=== PATIENT | female | born 1935 | race African-American/Black ===

== ENCOUNTER 2018-10-29 03:16 | Emergency (ER) | payer MEDICARE ==
[2018-10-29 03:42] LABS: Absolute Lymphocytes (CBC) 0.4 K/uL (0.7-4.9); Absolute Monocytes 0.3 K/uL (0.1-1.3); Absolute Neutrophil 3.9 K/uL (1.8-8.0); Basophils % 0.3 % (0-1.3); Eosinophils % 0.2 % (0-4.4); Hematocrit 35.4 % (36.0-45.0); Lymphocytes % 8.9 % (15.3-44.8); MPV 9.5 fL (7.6-11.3); Monocytes % 5.7 % (3.3-12.3)
[2018-10-29] MEDS ORDERED: DIPHENOX/ATROP SULF 1 TAB PO ONE (03:51)
[2018-10-29 04:05] LABS: ALT/SGPT 18 U/L (12-78); AST/SGOT 28 U/L (15-37); Albumin 2.9 g/dL (3.4-5.0); Alkaline Phosphatase 59 U/L (45-117); BUN Blood Urea Nitrogen 10 mg/dL (7-18); Bicarbonate 23 mmol/L (21-32); Bilirubin Direct 0.1 mg/dL (0-0.2); Bilirubin Total 0.6 mg/dL (0.2-1.0); Glucose Level 136 mg/dL (74-106); Lipase 49 U/L (73-393); Potassium 4.5 mmol/L (3.5-5.1); Protein, Total 6.3 g/dL (6.4-8.2); Sodium Level 140 mmol/L (136-145)
--- NOTE | 2018-10-29 04:50 | ER ---
Nurse's Notes [facility] Name: Lucinda Rojas Age: 83 yrs Sex: Female : 1935 Arrival Date: 10/29/2018 Time: 03:18 Bed 4 Private MD: Trevor Michele Diagnosis: Gastroenteritis Presentation: 10/29 03:25 Presenting complaint: EMS states: pt c/o N/V X3 hours SIGN WIRER. pt given 4mg zofran IV SIGN WIRER. ak1 Transition of care: patient was not received from another setting of care. Onset of symptoms was October 29, 2018. Risk Assessment: Do you want to hurt yourself or someone else? Patient reports no desire to harm self or others. Initial Sepsis Screen: Does the patient meet any 2 criteria? No. Patient's initial sepsis screen is negative. Does the patient have a suspected source of infection? No. Patient's initial sepsis screen is negative. Care prior to arrival: Medication(s) given: zofran 4 mg, IV initiated. 20 GA, in the right forearm. 03:25 Method Of Arrival: EMS: [facility] ak1 03:25 Acuity: KRISTIN 3 ak1 Triage Assessment: 03:27 General: Appears in no apparent distress. slender, Behavior is calm, cooperative. Pain: ak1 Denies pain. EENT: No signs and/or symptoms were reported regarding the EENT system. Neuro: No deficits noted. Cardiovascular: No deficits noted. Respiratory: No deficits noted. GI: Abdomen is flat, Abd is soft and non tender X 4 quads. Reports nausea, vomiting, since midnight Patient currently denies abdominal pain, diarrhea. : No signs and/or symptoms were reported regarding the genitourinary system. Derm: No signs and/or symptoms reported regarding the dermatologic system. Musculoskeletal: No signs and/or symptoms reported regarding the musculoskeletal system. 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 - Social history:: Smoking status: Patient/guardian denies using tobacco. - Ebola Screening: : No symptoms or risks identified at this time. Screenin:28 Abuse screen: Denies threats or abuse. Denies injuries from another. Nutritional ak1 screening: No deficits noted. Tuberculosis screening: No symptoms or risk factors identified. Fall Risk None identified. Assessment: 03:29 Reassessment: Patient appears in no apparent distress at this time. No changes from ak1 previously documented assessment. Patient is alert, oriented x 3, equal unlabored respirations, skin warm/dry/pink. see triage assessment. 04:38 Reassessment: Patient appears in no apparent distress at this time. pt c/o leg cramps. ak1 Vital Signs: 03:24 BP 134 / 86; Pulse 90; Resp 18; Temp 98.2(O); Pulse Ox 97% on R/A; Weight 63.5 kg (R); ak1 Height 5 ft. 4 in. (162.56 cm) (R); Pain 0/10; 04:38 BP 118 / 63; Pulse 80; Resp 16; Pulse Ox 99% on R/A; Pain 0/10; ak1 03:24 Body Mass Index 24.03 (63.50 kg, 162.56 cm) ak1 ED Course: 03:18 Patient arrived in ED. am2 03:19 Trevor Michele MD is Private Physician. am2 03:24 Kelsi Soto, RN is Primary Nurse. ak1 03:26 Triage completed. ak1 03:27 Arm band placed on Patient placed in an exam room, on a stretcher, on pulse oximetry, ak1 Patient notified of wait time. 03:28 Patient has correct armband on for positive identification. Placed in gown. Bed in low ak1 position. Call light in reach. Side rails up X2. Adult w/ patient. Pulse ox on. NIBP on. Warm blanket given. 03:28 Maintain EMS IV. Dressing intact. Good blood return noted. Site clean \T\ dry. Gauge \T\ ak 1 site: 20g right forearm.. 03:31 Ralf Saucedo MD is Attending Physician. pkl 04:49 Trevor Michele MD is Referral Physician. pkl 04:52 No provider procedures requiring assistance completed. ak1 05:08 IV discontinued, intact, bleeding controlled, IV infiltrated, swelling noted, no ak1 redness. pt denies pain. Administered Medications: 03:47 Drug: NS 0.9% 1000 ml Route: IV; Rate: 1000 ml; Site: right forearm; ak1 04:53 Follow up: IV Status: Completed infusion; IV Intake: 1000ml ak1 03:47 Drug: LoMOTIL 2 tabs Route: PO; ak1 04:37 Follow up: Response: No adverse reaction ak1 05:07 Drug: Tylenol 1000 mg Route: PO; ak1 05:08 Follow up: Response: No adverse reaction; Medication administered at discharge. ak1 Intake: 04:53 IV: 1000ml; Total: 1000ml. ak1 Outcome: 04:50 Discharge ordered by . pksharon 05:08 Discharged to home via wheelchair, with family. ak1 05:08 Condition: good 05:08 Discharge instructions given to patient, family, Instructed on discharge instructions, follow up and referral plans. no drinking with medication, no driving heavy equipment, medication usage, Demonstrated understanding of instructions, follow-up care, medications, Prescriptions given X 1. 05:09 Patient left the ED. ak1 Signatures: Ralf Saucedo MD MD pkl Krenek, Amber RN RN ak1 Yohana Gramajo
--- NOTE | 2018-10-29 04:51 | EDPHYS ---
Physician Documentation [facility] Name: Lucinda Rojas Age: 83 yrs Sex: Female : 1935 Arrival Date: 10/29/2018 Time: 03:18 Bed 4 Private MD: Trevor Michele ED Physician Ralf Saucedo HPI: 10/29 04:43 This 83 yrs old Black Female presents to ER via EMS with complaints of Nausea/Vomiting. pkl 04:43 The patient presents to the emergency department with nausea, vomiting, diarrhea. pkl Onset: The symptoms/episode began/occurred 3 hour(s) ago. 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 - Social history:: Smoking status: Patient/guardian denies using tobacco. - Ebola Screening: : No symptoms or risks identified at this time. ROS: 04:43 Eyes: Negative for injury, pain, redness, and discharge, ENT: Negative for injury, pkl pain, and discharge, Neck: Negative for injury, pain, and swelling, Cardiovascular: Negative for chest pain, palpitations, and edema, Respiratory: Negative for shortness of breath, cough, wheezing, and pleuritic chest pain. 04:43 Abdomen/GI: Positive for nausea, vomiting, and diarrhea. 04:43 Back: Negative for acute changes. 04:43 : Negative for urinary symptoms. 04:43 MS/extremity: Negative for acute changes. 04:43 Skin: Negative for rash. 04:43 Neuro: Negative for altered mental status. Exam: 04:43 Head/Face: Normocephalic, atraumatic. Eyes: Pupils equal round and reactive to light, pkl extra-ocular motions intact. Lids and lashes normal. Conjunctiva and sclera are non-icteric and not injected. Cornea within normal limits. Periorbital areas with no swelling, redness, or edema. ENT: Nares patent. No nasal discharge, no septal abnormalities noted. Tympanic membranes are normal and external auditory canals are clear. Oropharynx with no redness, swelling, or masses, exudates, or evidence of obstruction, uvula midline. Mucous membranes moist. Neck: Trachea midline, no thyromegaly or masses palpated, and no cervical lymphadenopathy. Supple, full range of motion without nuchal rigidity, or vertebral point tenderness. No Meningismus. Chest/axilla: Normal chest wall appearance and motion. Nontender with no deformity. No lesions are appreciated. Cardiovascular: Regular rate and rhythm with a normal S1 and S2. No gallops, murmurs, or rubs. Normal PMI, no JVD. No pulse deficits. Respiratory: Lungs have equal breath sounds bilaterally, clear to auscultation and percussion. No rales, rhonchi or wheezes noted. No increased work of breathing, no retractions or nasal flaring. 04:43 Abdomen/GI: Bowel sounds: active, Palpation: abdomen is soft and non-tender, in all quadrants. 04:43 Back: Exam negative for acute changes. 04:43 : Exam negative for acute changes. 04:43 Musculoskeletal/extremity: Exam is negative for acute changes. 04:43 Skin: Exam negative for rash. 04:43 Neuro: Orientation: is normal, Mentation: is normal, Cranial nerves: grossly normal, Motor: is normal. Vital Signs: 03:24 BP 134 / 86; Pulse 90; Resp 18; Temp 98.2(O); Pulse Ox 97% on R/A; Weight 63.5 kg (R); ak1 Height 5 ft. 4 in. (162.56 cm) (R); Pain 0/10; 04:38 BP 118 / 63; Pulse 80; Resp 16; Pulse Ox 99% on R/A; Pain 0/10; ak1 03:24 Body Mass Index 24.03 (63.50 kg, 162.56 cm) ak1 MDM: 03:31 Patient medically screened. pkl 04:49 Data reviewed: vital signs, nurses notes, lab test result(s). pkl 04:51 ED course: Patient feeling better. No vomiting or diarrhea noted in ER. Said she has pkl some cramps in right leg.. 10/29 03:30 Order name: Basic Metabolic Panel; Complete Time: 04:42 ak1 10/29 03:30 Order name: CBC with Diff; Complete Time: 04:42 ak1 10/29 03:30 Order name: Hepatic Function; Complete Time: 04:42 ak1 12/26 03:30 Order name: Lipase; Complete Time: 04:42 ak1 10/29 03:30 Order name: IV Saline Lock; Complete Time: 03:30 ak1 10/29 03:30 Order name: Labs collected and sent; Complete Time: 03:30 ak1 Administered Medications: 03:47 Drug: NS 0.9% 1000 ml Route: IV; Rate: 1000 ml; Site: right forearm; ak1 04:53 Follow up: IV Status: Completed infusion; IV Intake: 1000ml ak1 03:47 Drug: LoMOTIL 2 tabs Route: PO; ak1 04:37 Follow up: Response: No adverse reaction ak1 05:07 Drug: Tylenol 1000 mg Route: PO; ak1 05:08 Follow up: Response: No adverse reaction; Medication administered at discharge. ak1 Disposition: 10/29/18 04:50 Discharged to Home. Impression: Gastroenteritis. - Condition is Stable. - Prescriptions for Zofran 4 mg Oral Tablet - take 1 tablet by ORAL route every 12 hours As needed; 6 tablet. - Medication Reconciliation Form, Thank You Letter, Antibiotic Education, Prescription Opioid Use form. - Follow up: Trevor Michele MD; When: 1 - 2 days; Reason: Re-evaluation by your physician. - Problem is new. - Symptoms have improved. Signatures: Dispatcher [employer] EDLA Ralf Saucedo MD MD pkl Kelsi Soto RN RN ak1 Naomi Cobb RN RN tl2 Corrections: (The following items were deleted from the chart) 04:44 03:32 Creatinine for Radiology+C.LAB.BRZ ordered. [facility] EDLA 05:09 04:50 10/29/2018 04:50 Discharged to Home. Impression: Gastroenteritis. Condition is ak1 Stable. Forms are Medication Reconciliation Form, Thank You Letter, Antibiotic Education, Prescription Opioid Use. Follow up: Trevor Michele; When: 1 - 2 days; Reason: Re-evaluation by your physician. Problem is new. Symptoms have improved. pkl
[2018-10-29] MEDS ORDERED: ACETAMINOPHEN 500 MG TAB ONE (05:07)
== END 2018-10-29 05:09 | disposition home or self-care (01) ==
LOC: ER 03:16
DX: K52.9 Noninfective gastroenteritis and colitis, unspecified (principal)
CPT/HCPCS: 36415; 80048; 80076; 83690; 85025; 96360; 99284